=== PATIENT | male | born 1950 | race Caucasian/White ===

== ENCOUNTER 2021-08-06 23:34 | Inpatient (IN) | payer MEDICARE ==
[~2021-08-06] VITALS: Ht 172.7 cm; Wt 109.9 kg
[2021-08-06] MEDS ORDERED: PLEASE ENTER HEIGHT AND WEIGHT MC SCH (23:45)
[2021-08-06] MEDS ORDERED: PLEASE ENTER ALLERGIES MC SCH (23:45)
--- NOTE | 2021-08-06 23:57 | NUR ---
PT BIB [facility] FROM [facility] FOR HYPOXIA AND COVID PNUEMONIA. PT IS BROUGHT IN ON A NONREBREATHER SATING 94% ON 15L. PT IS AAOX4. VSS. PT DIAGNOISED WITH COVID 07/26/21. AT BEDSIDE UPON ASSESSMENT. PT CONNECTED TO VITAL SIGN MACHINE. AAOX4.
--- NOTE | 2021-08-06 23:58 | NUR ---
LAB AT BEDSIDE.
[2021-08-07] MEDS ORDERED: SODIUM CHLORIDE 0.9% 1,000 ML IV ONE
[2021-08-07] MEDS ORDERED: SODIUM CHLORIDE FLUSH 10ML SYR IVF ONE
[2021-08-07 00:24] LABS: MEAN CORPUSCULAR HEMOGLOBIN 30.7 pg (27.5-34.5); MEAN CORPUSCULAR HGB CONC 34.8 g/dL (33.2-36.2); MEAN PLATELET VOLUME 9.4 fL (7.4-10.4); PLATELET COUNT 132 x10^3/uL (130-400); RED BLOOD COUNT 5.67 x10^6/uL (4.38-5.82); RED CELL DISTRIBUTION WIDTH 14.1 % (9.4-14.8)
[2021-08-07 00:29] LABS: ALANINE AMINOTRANSFERASE 65 U/L (12-78); ALBUMIN 2.5 g/dL (3.4-5.0); ANION GAP 13 mmol/L (5-15); CALCIUM 8.2 mg/dL (8.5-10.1); CHLORIDE 97 mmol/L (98-107); CREATININE 3.06 mg/dL (0.7-1.3)
[2021-08-07 00:31] LABS: ALKALINE PHOSPHATASE 67 U/L (45-117); BILIRUBIN,TOTAL 0.8 mg/dL (0.2-1.0); TOTAL PROTEIN 6.8 g/dL (6.4-8.2)
[2021-08-07] MEDS ORDERED: AZITHROMYCIN 500 MG in SODIUM CHLORIDE 0.9% 250 ML IVPB ONE (01:00)
[2021-08-07] MEDS ORDERED: CEFTRIAXONE 1,000 MG in DEXTROSE 5% 50 ML IVPB ONE (01:00)
[2021-08-07 01:31] LABS: LYMPH#(MANUAL) 41.16 x10^3/uL (1-3.4); LYMPHS% (MANUAL) 82 % (22-44); MONOS% (MANUAL) 2 % (2-9); SEG#(MANUAL) 8.03 x10^3/uL (1.8-6.8); SEGS% (MANUAL) 16 % (42-75)
[2021-08-07 01:33] LABS: <RBC MORPHOLOGY> NORMAL; SMUDGE CELLS 2+
[2021-08-07 01:34] LABS: <PLATELET ESTIMATE> ADEQUATE
[2021-08-07 01:35] LABS: LARGE PLATELETS 1+
[2021-08-07] MEDS ORDERED: LABETALOL 5MG/ML, 20ML IVPush PRN (02:00)
[2021-08-07] MEDS ORDERED: PHARMACY MAY ADJ FOR RENAL FX MC PRN (02:00)
[2021-08-07] MEDS ORDERED: ONDANSETRON 2MG/ML, 2ML IVPush PRN (02:00)
[2021-08-07] MEDS ORDERED: POLYETHYLENE GLYCOL 17 GM PACKET PO PRN (02:00)
[2021-08-07] MEDS ORDERED: REMDESIVIR 200 MG in SODIUM CHLORIDE 0.9% 100 ML IVPB ONE (02:30)
[2021-08-07] MEDS ORDERED: ENOXAPARIN 60 MG/0.6 ML ONE (02:52)
[2021-08-07] MEDS: ENOXAPARIN 40 MG/0.4 ML SQ SCH (02:59)
--- NOTE | 2021-08-07 03:15 | NUR ---
RESPIRATORY AT BEDSIDE PLACING PT ON OPTIFLOW
--- NOTE | 2021-08-07 04:49 | NUR ---
LAB AT BEDSIDE. NADN. PT GIVEN WATER AND CRACKERS. WAITING ON ADMISSION BED. VSS. WILL CONTINUE TO MONITOR.
[2021-08-07 05:05] LABS: ALANINE AMINOTRANSFERASE 61 U/L (12-78); ALBUMIN 2.3 g/dL (3.4-5.0); ANION GAP 11 mmol/L (5-15); CALCIUM 7.9 mg/dL (8.5-10.1); CHLORIDE 99 mmol/L (98-107); CREATININE 2.91 mg/dL (0.7-1.3)
[2021-08-07 05:07] LABS: ALKALINE PHOSPHATASE 62 U/L (45-117); BILIRUBIN,TOTAL 0.5 mg/dL (0.2-1.0); TOTAL PROTEIN 6.4 g/dL (6.4-8.2)
--- NOTE | 2021-08-07 06:52 | NUR ---
RECEIVED REPORT FROM RADHA SHEETS, PLAN OF CARE DISCUSSED.
--- NOTE | 2021-08-07 07:47 | NUR ---
PT SLEEPING, HIGH FLOW OXYGEN ON
[2021-08-07] MEDS ORDERED: FAMOTIDINE 20 MG TABLET ONE (08:00)
[2021-08-07] MEDS ORDERED: ASCORBIC ACID 500 MG TABLET ONE (08:00)
[2021-08-07] MEDS ORDERED: DEXAMETHASONE 4 MG/ML, 1ML ONE ×2 (08:00→09:29)
[2021-08-07] MEDS ORDERED: ZINC SULFATE 220 MG CAPSULE ONE (08:00)
[2021-08-07] MEDS ORDERED: FAMOTIDINE 20 MG TABLET PO SCH (09:00)
[2021-08-07] MEDS: ZINC SULFATE 220 MG CAPSULE PO SCH (09:27)
[2021-08-07] MEDS: ASCORBIC ACID 500 MG TABLET PO SCH ×2 (09:27→22:02)
[2021-08-07] MEDS: DEXAMETHASONE 4 MG/ML, 1ML IVPush SCH (09:28)
--- NOTE | 2021-08-07 09:40 | NUR ---
PT PLACED ON HOSPITAL BED, SOB WITH MIN EXERTION, BP LOWER WHEN UP 74/55. PT ATE 100% BREAKFAST, COFFEE GIVEN, AM CARE SUPPLIES GIVEN. PT VERBALIZED NO OTHER NEEDS AT THIS TIME
--- NOTE | 2021-08-07 10:50 | NUR ---
PT SLEEPING, RESP EVEN AND UNLABORED, HIGH FLOW ON
--- NOTE | 2021-08-07 12:06 | NUR ---
REPRORT THAT PT IS IN ICU, DYING AND WILL NEED TO BE PALLITIVE CARE. SPOKE WITH PATIENT AT LENGTH AND DISCUSSED NEED FOR SKYPE CALL. PT VERBALIZED UNDERSTANDING. INCREASE EMOTIONAL SUPPORT GIVEN. SAT WITH PATIENT FOR SOME TIME AND LISTENED.
--- NOTE | 2021-08-07 14:19 | NUR ---
PT ATE 100% LUNCH, VERBALIZED NO NEEDS AT THIS TIME
--- NOTE | 2021-08-07 15:29 | NUR ---
TOOK PT TO CCU TO SAY GOODBYE TO . INCREASE EMOTIONAL SUPPORT GIVEN, PT TOLERATED WELL, BACK TO ROOM. REPORT TO CHUY RN, PLAN OF CARE DISCUSSED
--- NOTE | 2021-08-07 15:31 | NUR ---
REPORT FROM NATALIA SHEETS
--- NOTE | 2021-08-07 17:48 | NUR ---
CCU RN CALLED TO GIVE PT UPDATED ABOUT HIS . MESSAGE PASSED ON TO PT.
--- NOTE | 2021-08-07 17:57 | NUR ---
DINNER TRAY GIVEN.
[2021-08-07] MEDS ORDERED: AZITHROMYCIN 250 MG TABLET ONE (18:26)
[2021-08-07] MEDS: AZITHROMYCIN 500 MG TABLET PO SCH (18:29)
--- NOTE | 2021-08-07 20:11 | NUR ---
REPORT TO BARBIE SHEETS. PT ABLE TO TRANSFER TO ROOM ONCE CLEAN.
--- NOTE | 2021-08-07 21:01 | NUR ---
PT UP TO BSC, UNABLE TO HAVE BM, PT BACK IN CHAIR
[2021-08-07] MEDS: MELATONIN 5 MG TABLET PO SCH (22:02)
[2021-08-07 22:12] VITALS: BP 100/63
[2021-08-07] MEDS ORDERED: ASPI-1026 PO (23:49)
[2021-08-07] MEDS ORDERED: IBUP1TAB PO (23:49)
[2021-08-07] MEDS ORDERED: METH-640 PO (23:49)
[2021-08-07] MEDS ORDERED: HYDR-2214 PO (23:49)
[2021-08-08] MEDS: ENOXAPARIN 40 MG/0.4 ML SQ SCH (01:31)
[2021-08-08] MEDS: BENZONATATE 100 MG CAPSULE PO PRN (01:31)
[2021-08-08 02:01] VITALS: BP 99/60
[2021-08-08 02:15] VITALS: BP 108/57
[2021-08-08] MEDS: REMDESIVIR 100 MG in SODIUM CHLORIDE 0.9% 100 ML IVPB SCH (02:59)
[2021-08-08 03:36] LABS: MEAN CORPUSCULAR HEMOGLOBIN 30.6 pg (27.5-34.5); MEAN CORPUSCULAR HGB CONC 34.5 g/dL (33.2-36.2); MEAN PLATELET VOLUME 9.8 fL (7.4-10.4); PLATELET COUNT 148 x10^3/uL (130-400); RED BLOOD COUNT 5.03 x10^6/uL (4.38-5.82); RED CELL DISTRIBUTION WIDTH 13.8 % (9.4-14.8)
[2021-08-08 03:46] LABS: ALANINE AMINOTRANSFERASE 52 U/L (12-78); ALBUMIN 2.2 g/dL (3.4-5.0); ANION GAP 9 mmol/L (5-15); CALCIUM 8.1 mg/dL (8.5-10.1); CHLORIDE 100 mmol/L (98-107); CREATININE 2.59 mg/dL (0.7-1.3)
[2021-08-08 03:49] LABS: ALKALINE PHOSPHATASE 57 U/L (45-117); BILIRUBIN,TOTAL 0.5 mg/dL (0.2-1.0)
[2021-08-08 04:36] LABS: BAND#(MANUAL) 0.61 x10^3/uL; BANDS%(MANUAL) 1 % (0-7); LYMPH#(MANUAL) 46.44 x10^3/uL (1-3.4); LYMPHS% (MANUAL) 76 % (22-44); MONOS#(MANUAL) 0.61 x10^3/uL (0.3-2.7); MONOS% (MANUAL) 1 % (2-9); SEG#(MANUAL) 13.44 x10^3/uL (1.8-6.8); SEGS% (MANUAL) 22 % (42-75)
[2021-08-08 04:39] LABS: <RBC MORPHOLOGY> NORMAL; SMUDGE CELLS 2+
[2021-08-08 04:40] LABS: <PLATELET ESTIMATE> ADEQUATE; LARGE PLATELETS 1+
[2021-08-08 09:00] VITALS: BP 102/65
[2021-08-08] MEDS: DEXAMETHASONE 4 MG/ML, 1ML IVPush SCH (09:29)
[2021-08-08] MEDS: ZINC SULFATE 220 MG CAPSULE PO SCH (09:30)
[2021-08-08] MEDS: ASCORBIC ACID 500 MG TABLET PO SCH ×2 (09:30→20:30)
[2021-08-08 12:40] LABS: FIO2 35 %
[2021-08-08] MEDS: AZITHROMYCIN 500 MG TABLET PO SCH (16:30)
[2021-08-08 19:02] VITALS: BP 111/66
[2021-08-08 20:00] VITALS: BP 109/51
[2021-08-08] MEDS: FAMOTIDINE 20 MG TABLET PO SCH (20:31)
[2021-08-08] MEDS: MELATONIN 5 MG TABLET PO SCH (20:32)
[2021-08-08 23:17] VITALS: BP 120/42
[2021-08-09] VITALS (17 sets, daily range): BP systolic 88–131; BP diastolic 50–85
[2021-08-09] MEDS: REMDESIVIR 100 MG in SODIUM CHLORIDE 0.9% 100 ML IVPB SCH (02:35)
[2021-08-09] MEDS: ENOXAPARIN 30 MG/0.3 ML SQ SCH (02:35)
[2021-08-09 03:37] LABS: MEAN CORPUSCULAR HEMOGLOBIN 30.4 pg (27.5-34.5); MEAN CORPUSCULAR HGB CONC 33.9 g/dL (33.2-36.2); MEAN PLATELET VOLUME 9.5 fL (7.4-10.4); PLATELET COUNT 162 x10^3/uL (130-400); RED BLOOD COUNT 5.03 x10^6/uL (4.38-5.82); RED CELL DISTRIBUTION WIDTH 13.9 % (9.4-14.8)
[2021-08-09 03:47] LABS: ALBUMIN 2.1 g/dL (3.4-5.0); ANION GAP 9 mmol/L (5-15); CALCIUM 7.9 mg/dL (8.5-10.1); CHLORIDE 102 mmol/L (98-107)
[2021-08-09 03:51] LABS: ALANINE AMINOTRANSFERASE 43 U/L (12-78); ALKALINE PHOSPHATASE 57 U/L (45-117); BILIRUBIN,TOTAL 0.5 mg/dL (0.2-1.0); TOTAL PROTEIN 6.1 g/dL (6.4-8.2)
[2021-08-09 04:16] LABS: BAND#(MANUAL) 0.58 x10^3/uL; BANDS%(MANUAL) 1 % (0-7); LYMPHS% (MANUAL) 54 % (22-44); MONOS#(MANUAL) 1.15 x10^3/uL (0.3-2.7); MONOS% (MANUAL) 2 % (2-9); REACTIVE LYMPHS # (MANUAL) 1.15 x10^3/uL (0-0); REACTIVE LYMPHS % (MANUAL) 2 % (0-0); SEG#(MANUAL) 23.62 x10^3/uL (1.8-6.8); SEGS% (MANUAL) 41 % (42-75)
[2021-08-09 04:17] LABS: <RBC MORPHOLOGY> NORMAL; SMUDGE CELLS 2+
[2021-08-09 04:18] LABS: <PLATELET ESTIMATE> ADEQUATE; LARGE PLATELETS 1+
[2021-08-09] MEDS: ZINC SULFATE 220 MG CAPSULE PO SCH (08:54)
[2021-08-09] MEDS: DEXAMETHASONE 4 MG/ML, 1ML IVPush SCH (08:54)
[2021-08-09] MEDS: ASCORBIC ACID 500 MG TABLET PO SCH ×2 (08:54→22:50)
[2021-08-09] MEDS: AZITHROMYCIN 500 MG TABLET PO SCH (16:44)
[2021-08-09] MEDS: MELATONIN 5 MG TABLET PO SCH (22:50)
[2021-08-09] MEDS: FAMOTIDINE 20 MG TABLET PO SCH (22:50)
[2021-08-10 02:00] VITALS: BP 115/80
[2021-08-10] MEDS: ENOXAPARIN 30 MG/0.3 ML SQ SCH ×2 (02:45→22:05)
[2021-08-10] MEDS: REMDESIVIR 100 MG in SODIUM CHLORIDE 0.9% 100 ML IVPB SCH (02:45)
[2021-08-10 06:40] LABS: MEAN CORPUSCULAR HEMOGLOBIN 30.1 pg (27.5-34.5); MEAN CORPUSCULAR HGB CONC 33.7 g/dL (33.2-36.2); MEAN PLATELET VOLUME 9.3 fL (7.4-10.4); PLATELET COUNT 161 x10^3/uL (130-400); RED BLOOD COUNT 5.36 x10^6/uL (4.38-5.82); RED CELL DISTRIBUTION WIDTH 13.9 % (9.4-14.8)
[2021-08-10 06:52] LABS: ALBUMIN 2.5 g/dL (3.4-5.0); ANION GAP 9 mmol/L (5-15); CALCIUM 8.4 mg/dL (8.5-10.1); CHLORIDE 107 mmol/L (98-107)
[2021-08-10 06:58] LABS: ALANINE AMINOTRANSFERASE 50 U/L (12-78); ALKALINE PHOSPHATASE 60 U/L (45-117); BILIRUBIN,TOTAL 0.8 mg/dL (0.2-1.0); CREATININE 1.89 mg/dL (0.7-1.3); TOTAL PROTEIN 6.3 g/dL (6.4-8.2)
[2021-08-10 07:10] LABS: <RBC MORPHOLOGY> NORMAL; LYMPH#(MANUAL) 45.14 x10^3/uL (1-3.4); LYMPHS% (MANUAL) 85 % (22-44); MONOS#(MANUAL) 0.53 x10^3/uL (0.3-2.7); MONOS% (MANUAL) 1 % (2-9); SEG#(MANUAL) 7.43 x10^3/uL (1.8-6.8); SEGS% (MANUAL) 14 % (42-75); SMUDGE CELLS 2+
[2021-08-10 07:11] LABS: <PLATELET ESTIMATE> ADEQUATE; LARGE PLATELETS 1+
[2021-08-10] MEDS: DEXAMETHASONE 4 MG/ML, 1ML IVPush SCH (08:11)
[2021-08-10] MEDS: ASCORBIC ACID 500 MG TABLET PO SCH ×2 (08:11→22:03)
[2021-08-10] MEDS: ZINC SULFATE 220 MG CAPSULE PO SCH (08:11)
[2021-08-10 08:41] VITALS: BP 116/72
[2021-08-10] MEDS: BENZONATATE 100 MG CAPSULE PO PRN (12:46)
[2021-08-10 13:15] VITALS: BP 123/74
[2021-08-10] MEDS: AZITHROMYCIN 500 MG TABLET PO SCH (17:29)
[2021-08-10 19:05] VITALS: BP 119/73
[2021-08-10] MEDS: MELATONIN 5 MG TABLET PO SCH (22:04)
[2021-08-10] MEDS: FAMOTIDINE 20 MG TABLET PO SCH (22:04)
[2021-08-11 00:57] VITALS: BP 119/77
[2021-08-11] MEDS: REMDESIVIR 100 MG in SODIUM CHLORIDE 0.9% 100 ML IVPB SCH (02:07)
[2021-08-11 06:38] LABS: MEAN CORPUSCULAR HEMOGLOBIN 30.4 pg (27.5-34.5); MEAN CORPUSCULAR HGB CONC 33.9 g/dL (33.2-36.2); MEAN PLATELET VOLUME 9.4 fL (7.4-10.4); PLATELET COUNT 168 x10^3/uL (130-400); RED BLOOD COUNT 5.19 x10^6/uL (4.38-5.82)
[2021-08-11 06:42] LABS: ALBUMIN 2.1 g/dL (3.4-5.0); ANION GAP 7 mmol/L (5-15); CHLORIDE 107 mmol/L (98-107)
[2021-08-11 06:47] LABS: ALANINE AMINOTRANSFERASE 55 U/L (12-78); ALKALINE PHOSPHATASE 59 U/L (45-117); BILIRUBIN,TOTAL 0.7 mg/dL (0.2-1.0); CREATININE 1.73 mg/dL (0.7-1.3); TOTAL PROTEIN 6.1 g/dL (6.4-8.2)
[2021-08-11 07:45] LABS: LYMPH#(MANUAL) 41.57 x10^3/uL (1-3.4); LYMPHS% (MANUAL) 82 % (22-44); MONOS#(MANUAL) 1.01 x10^3/uL (0.3-2.7); MONOS% (MANUAL) 2 % (2-9); SEG#(MANUAL) 8.11 x10^3/uL (1.8-6.8)
[2021-08-11 07:46] LABS: <PLATELET ESTIMATE> ADEQUATE; <RBC MORPHOLOGY> NORMAL; SEGS% (MANUAL) 16 % (42-75); SMUDGE CELLS 2+
[2021-08-11 07:47] LABS: <PLT MORPHOLOGY> NORMAL PLT MORPH
[2021-08-11] MEDS: ZINC SULFATE 220 MG CAPSULE PO SCH (09:00)
[2021-08-11] MEDS: DEXAMETHASONE 4 MG/ML, 1ML IVPush SCH (09:01)
[2021-08-11] MEDS: ASCORBIC ACID 500 MG TABLET PO SCH ×2 (09:02→22:10)
[2021-08-11] MEDS: ENOXAPARIN 30 MG/0.3 ML SQ SCH ×2 (09:02→22:10)
[2021-08-11 09:39] VITALS: BP 105/61
[2021-08-11 13:27] VITALS: BP 124/69
[2021-08-11] MEDS: FUROSEMIDE 40 MG/4 ML IV SCH (13:47)
[2021-08-11] MEDS: AZITHROMYCIN 500 MG TABLET PO SCH (17:12)
[2021-08-11 20:00] VITALS: BP 129/74
[2021-08-11] MEDS: MELATONIN 5 MG TABLET PO SCH (22:10)
[2021-08-11] MEDS: FAMOTIDINE 20 MG TABLET PO SCH (22:10)
[2021-08-12 01:59] VITALS: BP 133/79
[2021-08-12 05:27] LABS: MEAN CORPUSCULAR HEMOGLOBIN 30.4 pg (27.5-34.5); MEAN CORPUSCULAR HGB CONC 33.9 g/dL (33.2-36.2); MEAN PLATELET VOLUME 8.9 fL (7.4-10.4); PLATELET COUNT 202 x10^3/uL (130-400); RED BLOOD COUNT 5.57 x10^6/uL (4.38-5.82); RED CELL DISTRIBUTION WIDTH 13.9 % (9.4-14.8)
[2021-08-12 05:35] LABS: ANION GAP 6 mmol/L (5-15); CALCIUM 8.5 mg/dL (8.5-10.1); CHLORIDE 107 mmol/L (98-107); CREATININE 1.81 mg/dL (0.7-1.3)
[2021-08-12 06:00] LABS: LYMPH#(MANUAL) 48.07 x10^3/uL (1-3.4); LYMPHS% (MANUAL) 86 % (22-44); MONOS#(MANUAL) 1.68 x10^3/uL (0.3-2.7); MONOS% (MANUAL) 3 % (2-9); SEG#(MANUAL) 6.15 x10^3/uL (1.8-6.8); SEGS% (MANUAL) 11 % (42-75)
[2021-08-12 06:01] LABS: <PLATELET ESTIMATE> ADEQUATE; <PLT MORPHOLOGY> NORMAL PLT MORPH; <RBC MORPHOLOGY> NORMAL; SMUDGE CELLS 2+
[2021-08-12 09:22] VITALS: BP 112/75
[2021-08-12] MEDS: ENOXAPARIN 30 MG/0.3 ML SQ SCH ×2 (09:36→21:18)
[2021-08-12] MEDS: DEXAMETHASONE 4 MG/ML, 1ML IVPush SCH (09:36)
[2021-08-12] MEDS: ZINC SULFATE 220 MG CAPSULE PO SCH (09:36)
[2021-08-12] MEDS: ASCORBIC ACID 500 MG TABLET PO SCH ×2 (09:36→21:18)
[2021-08-12] MEDS: FUROSEMIDE 40 MG/4 ML IV SCH (09:36)
[2021-08-12 13:54] VITALS: BP 108/71
[2021-08-12] MEDS: AZITHROMYCIN 500 MG TABLET PO SCH (16:54)
[2021-08-12] MEDS: MELATONIN 5 MG TABLET PO SCH (21:00)
[2021-08-12] MEDS: FAMOTIDINE 20 MG TABLET PO SCH (21:18)
[2021-08-12 21:59] VITALS: BP 118/74
[2021-08-13 03:13] VITALS: BP 121/79
[2021-08-13 06:35] LABS: ANION GAP 8 mmol/L (5-15); CALCIUM 8.7 mg/dL (8.5-10.1); CHLORIDE 102 mmol/L (98-107); CREATININE 1.91 mg/dL (0.7-1.3)
[2021-08-13 07:50] VITALS: BP 116/74
[2021-08-13] MEDS: ZINC SULFATE 220 MG CAPSULE PO SCH (10:09)
[2021-08-13] MEDS: ENOXAPARIN 30 MG/0.3 ML SQ SCH ×2 (10:09→20:53)
[2021-08-13] MEDS: ASCORBIC ACID 500 MG TABLET PO SCH ×2 (10:09→20:54)
[2021-08-13] MEDS: DEXAMETHASONE 4 MG/ML, 1ML IVPush SCH (10:09)
[2021-08-13 14:49] VITALS: BP 124/77
[2021-08-13] MEDS ORDERED: PSEUDOEPHEDRINE 30 MG TABLET PO PRN (15:00)
[2021-08-13 20:48] VITALS: BP 129/91
[2021-08-13] MEDS: MELATONIN 5 MG TABLET PO SCH (20:54)
[2021-08-13] MEDS: FAMOTIDINE 20 MG TABLET PO SCH (20:54)
[2021-08-13] MEDS ORDERED: TEMAZEPAM 15 MG CAPSULE PO ONE (21:30)
[2021-08-14 01:06] VITALS: BP 108/66
[2021-08-14 08:35] VITALS: BP 118/89
[2021-08-14] MEDS: DEXAMETHASONE 4 MG/ML, 1ML IVPush SCH (08:44)
[2021-08-14] MEDS: ASCORBIC ACID 500 MG TABLET PO SCH ×2 (08:45→20:36)
[2021-08-14] MEDS: ENOXAPARIN 30 MG/0.3 ML SQ SCH ×2 (08:45→20:36)
[2021-08-14] MEDS: ZINC SULFATE 220 MG CAPSULE PO SCH (08:46)
[2021-08-14 12:11] VITALS: BP 106/74
[2021-08-14 20:31] VITALS: BP 116/76
[2021-08-14] MEDS: MELATONIN 5 MG TABLET PO SCH (20:36)
[2021-08-14] MEDS: FAMOTIDINE 20 MG TABLET PO SCH (20:36)
[2021-08-15] MEDS: TEMAZEPAM 15 MG CAPSULE PO PRN (01:09)
[2021-08-15 01:10] VITALS: BP 134/78
[2021-08-15 04:49] LABS: CALCIUM 9.2 mg/dL (8.5-10.1); CHLORIDE 104 mmol/L (98-107)
[2021-08-15 04:53] LABS: ANION GAP 6 mmol/L (5-15); CREATININE 1.72 mg/dL (0.7-1.3)
[2021-08-15 09:03] VITALS: BP 118/71
[2021-08-15] MEDS: DEXAMETHASONE 4 MG/ML, 1ML IVPush SCH (09:05)
[2021-08-15] MEDS: ASCORBIC ACID 500 MG TABLET PO SCH ×2 (09:05→22:08)
[2021-08-15] MEDS: ZINC SULFATE 220 MG CAPSULE PO SCH (09:05)
[2021-08-15] MEDS: ENOXAPARIN 30 MG/0.3 ML SQ SCH ×2 (09:06→22:07)
[2021-08-15] MEDS ORDERED: ALBUTEROL HFA 90 MCG/SPRAY INH PRN (12:00)
[2021-08-15 14:33] VITALS: BP 120/80
[2021-08-15] MEDS: ALBUTEROL-IPRATROPIUM MDI INH INH SCH ×2 (15:00→19:47)
[2021-08-15 21:06] VITALS: BP 116/77
[2021-08-15] MEDS ORDERED: CETIRIZINE 10 MG TABLET PO ONE (22:00)
[2021-08-15] MEDS: FAMOTIDINE 20 MG TABLET PO SCH (22:08)
[2021-08-15] MEDS: MELATONIN 5 MG TABLET PO SCH (22:08)
[2021-08-16] MEDS: ALBUTEROL-IPRATROPIUM MDI INH INH SCH ×4 (02:40→20:38)
[2021-08-16 02:50] VITALS: BP 119/77
[2021-08-16 08:20] VITALS: BP 124/78
[2021-08-16] MEDS: ASCORBIC ACID 500 MG TABLET PO SCH ×2 (09:07→20:38)
[2021-08-16] MEDS: ZINC SULFATE 220 MG CAPSULE PO SCH (09:07)
[2021-08-16] MEDS: DEXAMETHASONE 4 MG/ML, 1ML IVPush SCH (09:07)
[2021-08-16] MEDS: ENOXAPARIN 30 MG/0.3 ML SQ SCH ×2 (09:07→20:39)
[2021-08-16 13:00] VITALS: BP 116/75
[2021-08-16] MEDS: AMOXICILLIN/CLAV 875-125MG TABLET PO SCH ×2 (15:42→20:38)
[2021-08-16 20:00] VITALS: BP 119/78
[2021-08-16] MEDS: MELATONIN 5 MG TABLET PO SCH (20:38)
[2021-08-16] MEDS: FAMOTIDINE 20 MG TABLET PO SCH (20:38)
[2021-08-17 02:40] VITALS: BP 124/72
[2021-08-17] MEDS: ALBUTEROL-IPRATROPIUM MDI INH INH SCH ×4 (03:40→22:50)
[2021-08-17] MEDS: TEMAZEPAM 15 MG CAPSULE PO PRN (03:40)
[2021-08-17 07:43] VITALS: BP 116/81
[2021-08-17] MEDS: ENOXAPARIN 30 MG/0.3 ML SQ SCH ×2 (10:18→22:50)
[2021-08-17] MEDS: DEXAMETHASONE 4 MG/ML, 1ML IVPush SCH (10:18)
[2021-08-17] MEDS: AMOXICILLIN/CLAV 875-125MG TABLET PO SCH ×2 (10:18→22:50)
[2021-08-17] MEDS: ASCORBIC ACID 500 MG TABLET PO SCH (10:18)
[2021-08-17] MEDS: ZINC SULFATE 220 MG CAPSULE PO SCH (10:18)
[2021-08-17 14:00] VITALS: BP 121/77
[2021-08-17 20:17] VITALS: BP 125/74
[2021-08-17] MEDS: FAMOTIDINE 20 MG TABLET PO SCH (22:50)
[2021-08-17] MEDS: MELATONIN 5 MG TABLET PO SCH (22:50)
[2021-08-18 01:01] VITALS: BP 119/46
[2021-08-18] MEDS: ALBUTEROL-IPRATROPIUM MDI INH INH SCH ×4 (03:58→22:29)
[2021-08-18 06:54] LABS: MEAN CORPUSCULAR HEMOGLOBIN 30.3 pg (27.5-34.5); MEAN CORPUSCULAR HGB CONC 33.3 g/dL (33.2-36.2); MEAN PLATELET VOLUME 9.1 fL (7.4-10.4); PLATELET COUNT 192 x10^3/uL (130-400); RED BLOOD COUNT 5.12 x10^6/uL (4.38-5.82); RED CELL DISTRIBUTION WIDTH 13.7 % (9.4-14.8)
[2021-08-18 07:04] LABS: ANION GAP 7 mmol/L (5-15); CALCIUM 8.7 mg/dL (8.5-10.1); CHLORIDE 103 mmol/L (98-107)
[2021-08-18 07:07] LABS: CREATININE 1.92 mg/dL (0.7-1.3)
[2021-08-18 07:34] LABS: <RBC MORPHOLOGY> NORMAL; BAND#(MANUAL) 0.65 x10^3/uL; BANDS%(MANUAL) 1 % (0-7); LYMPH#(MANUAL) 55.47 x10^3/uL (1-3.4); LYMPHS% (MANUAL) 86 % (22-44); MONOS#(MANUAL) 1.29 x10^3/uL (0.3-2.7); MONOS% (MANUAL) 2 % (2-9); SEGS% (MANUAL) 11 % (42-75)
[2021-08-18 07:35] LABS: <PLATELET ESTIMATE> ADEQUATE; <PLT MORPHOLOGY> NORMAL PLT MORPH; SMUDGE CELLS 2+
[2021-08-18 08:34] VITALS: BP 122/76
[2021-08-18] MEDS: ENOXAPARIN 30 MG/0.3 ML SQ SCH ×2 (09:32→20:48)
[2021-08-18] MEDS: AMOXICILLIN/CLAV 875-125MG TABLET PO SCH ×2 (09:32→20:48)
[2021-08-18 14:59] VITALS: BP 110/56
[2021-08-18] MEDS: FAMOTIDINE 20 MG TABLET PO SCH (20:48)
[2021-08-18] MEDS: MELATONIN 5 MG TABLET PO SCH (20:48)
[2021-08-18 20:52] VITALS: BP 131/87
[2021-08-18] MEDS: TEMAZEPAM 15 MG CAPSULE PO PRN (22:29)
[2021-08-19 01:33] VITALS: BP 109/60
[2021-08-19] MEDS: ALBUTEROL-IPRATROPIUM MDI INH INH SCH ×2 (04:00→09:21)
[2021-08-19 08:00] VITALS: BP 135/54
[2021-08-19] MEDS: ENOXAPARIN 30 MG/0.3 ML SQ SCH (09:21)
[2021-08-19] MEDS: AMOXICILLIN/CLAV 875-125MG TABLET PO SCH (09:21)
[2021-08-19 11:52] VITALS: BP 123/56
[2021-08-19] MEDS ORDERED: ASCO-219 PEG (12:23)
[2021-08-19] MEDS ORDERED: MELA5TAB14 PO (12:23)
[2021-08-19] MEDS ORDERED: TEMA15CA6 PO (12:23)
[2021-08-19] MEDS ORDERED: CHOL200040 PO (12:23)
== END 2021-08-19 14:07 | DRG 177 ==
LOC: ED 23:45 → EDIP 08-07 01:03 → ICU 08-07 21:19 → 4WST 08-09 15:08
PROVIDERS: ADMIT Internal Medicine; ATTEND Family Medicine
PROC: XW033E5 Introduction of Remdesivir Anti-infective into Peripheral Vein, Percutaneous Approach, New Technology Group 5 (ICD-10-PCS; principal; 2021-08-07)
PROC: 5A0935A Assistance with Respiratory Ventilation, Less than 24 Consecutive Hours, High Flow/Velocity Cannula (ICD-10-PCS; 2021-08-07)
PROC: 5A0935A Assistance with Respiratory Ventilation, Less than 24 Consecutive Hours, High Flow/Velocity Cannula (ICD-10-PCS; 2021-08-15)
PROC: 5A0935A Assistance with Respiratory Ventilation, Less than 24 Consecutive Hours, High Flow/Velocity Cannula (ICD-10-PCS; 2021-08-16)
PROC: 5A0935A Assistance with Respiratory Ventilation, Less than 24 Consecutive Hours, High Flow/Velocity Cannula (ICD-10-PCS; 2021-08-17)
DX: U07.1 COVID-19 (principal); J96.01 Acute respiratory failure with hypoxia; N17.0 Acute kidney failure with tubular necrosis; J12.82 Pneumonia due to coronavirus disease 2019; J15.9 Unspecified bacterial pneumonia; Z68.41 Body mass index [BMI] 40.0-44.9, adult; C95.90 Leukemia, unspecified not having achieved remission; E66.01 Morbid (severe) obesity due to excess calories; F19.10 Other psychoactive substance abuse, uncomplicated; I12.9 Hypertensive chronic kidney disease with stage 1 through stage 4 chronic kidney disease, or unspecified chronic kidney disease; N18.30 Chronic kidney disease, stage 3 unspecified; Z79.899 Other long term (current) drug therapy
CPT/HCPCS: 36415; 36600; 71045; 80048; 80053; 82803; 83605; 83615; 84145; 85025; 85379; 87040; 87081; 93005; 99291; G0378; J0456; J0696; J1100; J1650; J1940; U0005; J7030; J7050; U0003